=== PATIENT | male | born 1965 | race Caucasian/White ===

== ENCOUNTER → 2021-04-21 | Outpatient (CLI) | payer OTHER ==
[2015-06-03 09:45] VITALS: BP 129/70
[~2021-04-21] MED LIST: LANS30CA66 PO
--- NOTE | 2021-04-22 11:11 | KCIC ---
EXAM: 3 views of the left ankle DATE: 04/21/2021 3:13 PM INDICATION: Reason: LEFT MEDIAL ANKLE PAIN 1.5 MONTH, NO KNOWN INJURY / Spl. Instructions: / History : COMPARISON: No Prior FINDINGS: No acute fracture or dislocation. Ankle mortise is congruent. Talar dome is intact. Joint spaces are preserved without significant degenerative/proliferative change. No significant soft tissue swelling. Small plantar calcaneal enthesophyte. IMPRESSION: 1. No acute fracture or dislocation. 2. Small plantar calcaneal enthesophyte. Electronically signed by: Markus Palmer MD (04/22/2021 11:09 AM) [id number]
== END ==
LOC: KCIC 15:09
PROVIDERS: ATTEND Family Medicine
DX: M77.32 Calcaneal spur, left foot (principal); M25.572 Pain in left ankle and joints of left foot
CPT/HCPCS: 73610